=== PATIENT | female | born 1990 | race Caucasian/White ===

== ENCOUNTER 2018-04-05 13:32 | Emergency (ER) | payer OTHER ==
[2018-04-05 13:38] VITALS: BMI 17.2
--- NOTE | 2018-04-05 15:07 | PDOC ---
History of Present Illness - General Chief Complaint: Pain Stated Complaint: PAIN Time Seen by Provider: 04/05/18 14:15 History Source: Patient Exam Limitations: No Limitations - History of Present Illness Initial Comments: 27 y/o female presenting to [facility] ER via private auto complaining of lower abdominal cramping for the past five days. She reports a positive home test on 23 Mar 2018. She wanted to make sure she was because she was afraid to take pain medication for the cramping. The cramping is a chronic occurrence for the past several years; usually prior to menstruation. She endorses intermittent spotting over the past several days; not requiring multiple pad changes per day. Endorses a burning sensation with urination every couple of days. States she has a history of ovarian cysts but she had an ultrasound performed in the ED last year, which did not show any cysts. Never followed up with an OBGYN. One prior resulting in spontaneous . No history of STDs. LMP: 04 Feb 2018, but pt then says it may have been on Mar 18 when she bleed for two hours. Medical Hx: - Pt denies past medical history. Denies prescription medications. Surgical Hx: - Pt denies past surgical history. Past History - Past Medical History Allergies/Adverse Reactions: Allergies Allergy/AdvReac Type Severity Reaction Status Date / Time diphenhydramine HCl Allergy Verified 04/05/18 13:38 [From Benadryl] Home Medications: Ambulatory Orders NK [No Known Home Medication] 04/05/18 COPD: No Thyroid Disease: No - Reproductive History Is Patient Now?: Yes (#): 2 Para: 0 Spontaneous : 1 - Immunization History Immunization Up to Date: Yes - Suicide/Smoking/Psychosocial Hx Smoking History: Never smoked Have you smoked in the past 12 months: No Hx Alcohol Use: No Drug/Substance Use Hx: No Substance Use Type: None Review of Systems - Review of Systems Able to Perform ROS?: Yes Comments:: In addition to that documented in the HPI above, the additional ROS was obtained : Constitutional: Denies fevers or chills Eyes: Denies vision changes ENMT: Denies sore throat CV: Denies chest pain Resp: Denies SOB GI: Denies vomiting or diarrhea *Physical Exam - Vital Signs Last Vital Signs Temp Pulse Resp BP Pulse Ox 98 F 117 H 20 104/73 100 04/05/18 13:36 04/05/18 13:36 04/05/18 13:36 04/05/18 13:36 04/05/18 13:36 - Physical Exam Comments: Constitutional: Well-developed, well-nourished, thin female in no acute distress or obvious discomfort. Found sitting upright on edge of hospital bed. Alert and oriented x4. Answered all questions appropriately and completely. Speech was non-labored, non-pressured. HEENT: Normocephalic. No obvious external signs of trauma. Hearing grossly normal. No nasal discharge. Neck is supple. Cardiovascular: Regular rate and regular rhythm. No murmur, rubs, clicks, or gallops. Peripheral pulses: Radial pulses full. Respiratory: Breathing unlabored. Equal chest rise and fall. Clear to auscultation bilaterally. No stridor, no wheezing, no rhonchi. Gastrointestinal: abdomen is subjectively tender in RLQ and LLQ without rebound or guarding. Abdomen is soft and nondistended. No hepatosplenemegaly. No pulsatile masses. No overlying skin lesions or obvious signs of trauma. Neuro: Alert and oriented. Moving all four extremities spontaneously. Skin: Warm, dry, and intact. No bruising, rashes, or other lesions. : No R or L CVA tenderness. Psych: Affect: appropriate. Mood: normal. Female Pelvic: External genitalia unremarkable. Speculum exam with normal appearing whitish vaginal discharge. Vaginal wall mucosa is unremarkable. Cervix visualized and is unremarkable (closed in appearance without any protruding material). Bimanual exam without cervical motion tenderness, adnexal tenderness or any masses appreciated. upholstery cutter chaperoned exam. ED Treatment Course - LABORATORY CBC & Chemistry Diagram: 04/05/18 15:20 04/05/18 15:20 Medical Decision Making - Medical Decision Making *Reviewed vital signs, nursing notes, and prior visit documentation (if available). 27 y/o female complaining of chronic and unchanged abdominal/pelvic cramping in setting of positive home test. Small amount of spotting over past several days. Believes her LMP is either 02/04/2018 or 03/18/2018. H/o spontaneous in first trimester. Afebrile. Vitals unremarkable for hypotension or tachycardia. Physical exam as described above. D/D mittelschmerz , , physiologic bleeding of , threatened , completed , ectopic , ovarian torsion, PID, cystitis, salpingitis, uterine fibroids, ovarian cyst. Will obtain CBC, CMP, T/S, UA, Urine culture, Beta quant, and transvaginal ultrasound. T/S O, positive. No rhogam indicated. U/S revealed single IUP approx. 9 weeks 0 days. Suspect bleeding was likely physiologic bleeding of as no bleeding was appreciated on physical exam. OS was closed on bimanual. Normal U/S. Pt referred to staff. Call microblog sent by medical certification specialist. Discussed imaging and laboratory results with pt. Answered all questions. Provided return precautions. Pt expressed verbal understanding and agreement with plan to discharge home with outpatient follow up. 18:32 Pt left prior to being evaluated by attending. Called both contact numbers listed under demographics. Left message at requesting call back. *DC/Admit/Observation/Transfer Diagnosis at time of Disposition: Threatened in early Qualifiers: Weeks of gestation: 9 weeks Qualified Code(s): Z3A.09 - 9 weeks gestation of - Discharge Dispostion Disposition: HOME Condition at time of disposition: Stable Decision to Admit order: No - Referrals Referrals: Mindy Valerio [Primary Care Provider] - Anselmo Mclean MD [Staff Physician] - - Patient Instructions Printed Discharge Instructions: DI for Abdominal Pain -- Early Additional Instructions: Your ultrasound showed a normal intrauterine at approximately 9 weeks 0 days. You need to follow up with a OB-POWER SHOVEL OPERATOR for care. I have placed a referral for you to see Dr. Anselmo Mclean. You should receive a phone call from the office within 2 business days to schedule an appointment. You may also call. The number is . Go to the nearest emergency department if your condition worsens, you develop signs of an infection, or you feel like you need additional emergency evaluation. Print Language: BENINESE - Post Discharge Activity
[2018-04-05 15:37] LABS: URINE APPEARANCE CLEAR; URINE BILIRUBIN NEGATIVE (<2.0 mg/dL); URINE COLOR COLORLESS; URINE GLUCOSE (UA) NEGATIVE (NEGATIVE); URINE KETONE 1+ (NEGATIVE); URINE LEUK ESTERASE NEGATIVE (NEGATIVE); URINE NITRITE NEGATIVE (NEGATIVE); URINE PROTEIN NEGATIVE (NEGATIVE); URINE UROBILINOGEN NEGATIVE mg/dL (0.2-1.0)
[2018-04-05 15:52] LABS: BASO % 0.7 % (0-2.0); EOS % 0.2 % (0-4.5); HEMATOCRIT 39.8 % (32.4-45.2); HEMOGLOBIN 13.2 GM/dL (10.7-15.3); LYMPH % 16.1 % (8-40); MCH 27.2 pg (25.7-33.7); MCHC 33.2 g/dl (32.0-36.0); MEAN PLT VOLUME 8.1 fl (7.5-11.1); MONO % 9.2 % (3.8-10.2); NEUT % 73.8 % (42.8-82.8); PLATELET COUNT 308 K/MM3 (134-434); RBC 4.86 M/mm3 (3.60-5.2); RDW 13.5 % (11.6-15.6); WHITE BLOOD COUNT 9.4 K/mm3 (4.0-10.0)
[2018-04-05 16:06] LABS: ALBUMIN 3.7 g/dl (3.4-5.0); ALK PHOS 52 U/L (45-117); ANION GAP 8 MMOL/L (8-16); BILIRUBIN,TOTAL 0.3 mg/dL (0.2-1); BLOOD UREA NITROGEN 7 mg/dL (7-18); CHLORIDE 102 mmol/L (98-107); CO2 24 mmol/L (21-32); CREATININE 0.4 mg/dL (0.55-1.3); GLUCOSE,RANDOM 70 mg/dL (74-106); POTASSIUM 4.1 mmol/L (3.5-5.1); SGOT/AST 16 U/L (15-37); SGPT/ALT 20 U/L (13-61); SODIUM 135 mmol/L (136-145); TOT PROT 7.2 g/dl (6.4-8.2)
--- NOTE | 2018-04-05 16:32 | PDOC ---
Attending Attestation - Resident Resident Name: Victorino Diallo - ED Attending Attestation I have performed the following: I have examined & evaluated the patient, The case was reviewed & discussed with the resident, I agree w/resident's findings & plan, Exceptions are as noted
[2018-04-05 17:37] VITALS: BP 108/72; PULSE 88
[2018-04-05 17:38] VITALS: TEMP 98.1
== END 2018-04-05 17:30 | disposition home or self-care (01) ==
LOC: JER 13:32
DX: O26.891 Other specified pregnancy related conditions, first trimester (principal); O20.0 Threatened abortion; Z3A.09 9 weeks gestation of pregnancy
CPT/HCPCS: 36415; 76801-TC; 80053; 81003; 84702; 85025; 86850; 86900; 86901; 87086; 99283-25

== ENCOUNTER 2018-11-10 06:00 | Inpatient (IN) | payer OTHER | END 2018-11-13 16:10 | disposition home or self-care (01) | LOC: JLDR 06:00 → J3W 11:00 ==